=== PATIENT | male | born 1950 | race Caucasian/White ===

== ENCOUNTER → 2017-04-22 | Outpatient (CLI) | payer OTHER ==
[~2017-04-22] MED LIST: IOPAMIDOL (ISOVUE-300) 100 ML BTL ONE
== END ==
LOC: FIMAGING 12:21
PROVIDERS: ATTEND Family Medicine
DX: R59.0 Localized enlarged lymph nodes (principal); M79.9 Soft tissue disorder, unspecified; K44.9 Diaphragmatic hernia without obstruction or gangrene
CPT/HCPCS: 71260; Q9967

== ENCOUNTER → 2017-05-08 | Outpatient (CLI) | payer OTHER | LOC: BHFA 14:45 | PROVIDERS: ATTEND Internal Medicine | DX: Z51.11 Encounter for antineoplastic chemotherapy (principal) ==

== ENCOUNTER 2017-12-18 05:51 | Day surgery (SDC) | payer OTHER ==
[2017-12-18] MEDS ORDERED: LR 1,000 ML IV ONE (06:42)
[2017-12-18] MEDS ORDERED: ceFAZolin 2 GM in D5W 100 ML IV ONE (06:58)
--- NOTE | 2017-12-18 06:58 | PDHPUP ---
History & Physical Update H&P update statement: This history and physical update is based on an assessment of the patient which was completed after admission or registration (within 24 hours), but prior to the surgery/procedure. H&P update: H&P reviewed & patient examined (right axillary mass marked in pre- op), no change in patient's condition since H&P completed
[2017-12-18] MEDS ORDERED: BUPIVACAINE 0.25% 30 ML SDV ONE (07:04)
[2017-12-18] MEDS ORDERED: EPINEPHrine 1 MG/ML INJ ONE (07:04)
[2017-12-18] MEDS ORDERED: LIDOCAINE 1% 300 MG/30 ML SDV ONE (07:04)
--- NOTE | 2017-12-18 07:09 | PDANEPAE ---
ANE History of Present Illness here for ax node dissection, port removal ANE Past Medical History - Cardiovascular History Hx Hypertension: Yes Hx Arrhythmias: Yes Hx Chest Pain: No Hx Coronary Artery / Peripheral Vascular Disease: No Hx CHF / Valvular Disease: No Hx Palpitations: No Cardiovascular History Comment: States has been told has an arrythmia but unsure of the name of it - Pulmonary History Hx COPD: No Hx Asthma/Reactive Airway Disease: No Hx Recent Upper Respiratory Infection: No Hx Oxygen in Use at Home: No Hx Sleep Apnea: No Sleep Apnea Screening Result - Last Documented: Positive Pulmonary History Comment: KIMBERLY triggers - Neurologic History Hx Cerebrovascular Accident: No Hx Seizures: No Hx Dementia: No - Endocrine History Hx Diabetes: No - Renal History Hx Renal Disorders: No - Liver History Hx Hepatic Disorders: No - Neurological & Psychiatric Hx Hx Neurological and Psychiatric Disorders: No - Cancer History Hx Cancer: Yes Cancer History Comment: non-hodgkin's lymphoma - Congenital Disorder History Hx Congenital Disorders: No - GI History Hx Gastrointestinal Disorders: Yes Gastrointestinal History Comment: reflux w/ guerrero's esophagus - Other Health History Other Health History: glasses for reading - Chronic Pain History Chronic Pain: No - Surgical History Prior Surgeries: biopsy of lump in right axilla, 05/2017. port placement, 2017. trigger finger release, 2006. colonoscopies, endoscopies ANE Review of Systems Review of Systems: - Exercise capacity METS (RN): 4 METS ANE Patient History - Allergies Allergies/Adverse Reactions: No Known Allergies Allergy (Verified 12/17/17 10:17) - Home Medications Home Medications: Amlodipine Besylate 12/17/17 [Last Taken Unknown] Omeprazole 12/17/17 [Last Taken Unknown] - NPO status NPO Status: no food or drink >8 hours - Anes Hx Anes Hx: no prior problems - Smoking Hx Smoking Status: Former smoker - Alcohol Use Alcohol Use: None - Family Anes Hx Family Anes Hx: none Family Hx Anesthesia Complications: none ANE Labs/Vital Signs - Vital Signs Vital Signs: reviewed preoperatively; see RN documention for details Height: 180.34 cm Weight: 90.265 kg ANE Physical Exam - Airway Neck exam: FROM Mallampati Score: Class 2 Mouth exam: normal dental/mouth exam - Pulmonary Pulmonary: no respiratory distress, clear to auscultation - Cardiovascular Cardiovascular: regular rate and rhythym, no murmur, rub, or gallop - ASA Status ASA Status: II ANE Anesthesia Plan Anesthesia Plan: GA w LMA
[2017-12-18] MEDS ORDERED: fentaNYL 100 MCG/2 ML INJ ONE (07:14)
[2017-12-18] MEDS ORDERED: PROPOFOL 200 MG/20 ML VIAL ONE (07:14)
[2017-12-18] MEDS ORDERED: LIDOCAINE 2% 100 MG/5 ML SYR ONE (07:15)
[2017-12-18] MEDS ORDERED: MIDAZOLAM 2 MG/2 ML VIAL ONE (07:20)
[2017-12-18] MEDS ORDERED: ceFAZolin 2 GM/DEXTROSE 100 ML IV ONE (07:30)
[2017-12-18] MEDS ORDERED: DEXAMETHASONE 4 MG/ML VIAL ONE (08:03)
[2017-12-18] MEDS ORDERED: ONDANSETRON 4 MG/2 ML VIAL ONE (08:03)
[2017-12-18] MEDS ORDERED: ePHEDrine SULFATE 25 MG/5 ML SYR ONE (08:22)
[2017-12-18] MEDS ORDERED: HYDROCODONE/APAP 5/325 TAB PO PRN (09:05)
[2017-12-18] MEDS ORDERED: oxyCODONE IR 5 MG TAB PO PRN (09:05)
[2017-12-18] MEDS ORDERED: PROMETHAZINE HCL 25 MG/ML INJ IVP PRN (09:05)
[2017-12-18] MEDS ORDERED: NALOXONE HCL 0.4 MG/ML INJ IVP PRN (09:05)
[2017-12-18] MEDS ORDERED: ONDANSETRON 4 MG/2 ML VIAL IVP PRN (09:05)
[2017-12-18] MEDS ORDERED: ACETAMINOPHEN 500 MG TAB PO PRN (09:05)
[2017-12-18] MEDS ORDERED: fentaNYL 100 MCG/2 ML INJ IVP PRN (09:05)
[2017-12-18] MEDS ORDERED: HYDROmorphONE/DILAUDID 2 MG/ML INJ IVP PRN (09:05)
--- NOTE | 2017-12-18 09:06 | POSTANESTH ---
Post Anesthetic Evaluation Cardiovascular Status: Normal, Stable, Similar to Pre-Op Cond Respiratory Status: Normal, Stable, Similar to Pre-op Cond. Level of Consciousness/Mental Status: Mildly Sleepy, Arousable Pain Control: Adequate, Prn Tx Ordered Nausea/Vomiting Control: Adequate, Prn Tx Ordered Complications Possibly Related to Anesthesia: None Noted
[2017-12-18] MEDS ORDERED: ONDANSETRON DISINTEGRATING 4 MG TAB PO PRN (09:07)
--- NOTE | 2017-12-18 09:07 | POSTOPPROG ---
Post Op Note Date of Operation: 12/18/17 Surgeon: Mukul Mays (, FACS) Anesthesiologist: Isaac Carranza MD Anesthesia: LMA Pre-op Diagnosis: right axillary mass/hx B cell lymphoma Procedure: excision right axillary mass/venous port removal Findings: firm nodule right axilla/frozen negative for malignancy Inf/Abcess present in the surg proc area at time of surgery?: No EBL: Minimal (30ml)
[2017-12-18] MEDS ORDERED: ACETAMINOPHEN 500 MG TAB PO ONE (09:08)
[2017-12-18] MEDS ORDERED: IBUPROFEN 600 MG TAB PO PRN (09:08)
--- NOTE | 2017-12-18 10:17 | GOP ---
DATE OF OPERATION: SURGEON: Mukul Mays MD, FACS ANESTHESIA: General by laryngeal mask. ANESTHESIOLOGIST: Isaac Carranza MD PREOPERATIVE DIAGNOSIS: 1. Diffuse B-cell lymphoma, status post chemotherapy. 2. Right axillary mass. 3. Indwelling venous port. POSTOPERATIVE DIAGNOSIS: 1. Diffuse B-cell lymphoma, status post chemotherapy. 2. Right axillary mass. 3. Indwelling venous port. PROCEDURE PERFORMED: 1. Excision of right axillary soft tissue tumor, deep, greater than 3 cm. 2. Venous port removal. FINDINGS: Firm nodule insinuated between the lateral border of the pectoralis muscle and the serratus muscle, deep to the axillary fascia, consistent with a deep level 1 axillary lymph node. Frozen section showing necrotic tissue with surrounding histiocytes. No evidence of active malignancy. Permanent section and flow cytometry submitted. ESTIMATED BLOOD LOSS: 25 mL. DESCRIPTION OF PROCEDURE: After informed consent was obtained, the patient was brought to the operating room, placed under general anesthesia. The right axilla and left chest wall were prepped in the same sterile field. Before proceeding, a time-out identification of the patient was performed. Marcaine 0.25% was used to liberally infiltrate the old axillary incision where a previous lymph node biopsy had been performed, which was the presenting source for his diffuse B-cell lymphoma. This incision was re-incised and dissection carried through the skin and subcutaneous tissues, and deep axillary fascia. The node was somewhat deep within the level 1 chain, and between the axillary incision and the old drain site. The node was dissected from the posterior aspect of the pectoralis muscle and along the serratus border. Lymphovascular structures were hemoclipped and divided, and the node was from the surrounding fibrofatty tissue without violating its capsule. This was submitted for frozen section. In the interim, hemostasis was secured with cautery and hemoclips. Deep axillary fascia was closed with 3-0 Vicryl suture, subcutaneous tissues with 3-0 Vicryl suture. Skin was closed with 4-0 Monocryl suture in a subcuticular fashion. Dr. Hadley Ward subsequently reported that the nodule in question was necrotic tissue with abundant histiocytes, consistent with a nonviable node. No active tumor was identified. I requested that he submit this for flow cytometry, as well as permanent section. The port was then explanted after infiltrating the old incision with 0.25% Marcaine and re-incising the incision. The port was detached from the pectoralis fascia and the 3-0 Prolene sutures removed. The 8- Faro[place] polyurethane catheter was removed from its tunnel, and the tunnel oversewn with 3-0 Vicryl suture in a [id number] fashion. This was then used to close the deep subcutaneous tissues. Skin was closed with 4-0 Monocryl suture in a subcuticular fashion. The final skin closure was with Dermabond to both incisions. Patient was extubated and brought to the recovery room in satisfactory condition. Needle, sponge, and instrument counts were correct. COMPLICATIONS: None. Copy requested to: Dr. Court Barcenas /[id number]/MODL MTDD
[2017-12-18 10:58] VITALS: BP 116/69
== END 2017-12-18 10:57 | disposition home or self-care (01) ==
LOC: FSGY 05:51
PROVIDERS: ATTEND Surgery
PROC: 0JPT0XZ Removal of Tunneled Vascular Access Device from Trunk Subcutaneous Tissue and Fascia, Open Approach (ICD-10-PCS; principal; 2017-12-18 07:28)
PROC: 07B50ZX Excision of Right Axillary Lymphatic, Open Approach, Diagnostic (ICD-10-PCS; principal; 2017-12-18 07:28)
DX: C83.34 Diffuse large B-cell lymphoma, lymph nodes of axilla and upper limb (principal); R59.0 Localized enlarged lymph nodes; I10 Essential (primary) hypertension
CPT/HCPCS: 88184-90; 88185-91; J0171; J0690; J1100; J2001; J2250; J2405; J2704; J3010